=== PATIENT | male | born 1950 | race Caucasian/White ===

== ENCOUNTER 2017-12-27 06:58 | Outpatient (CLI) | payer MEDICARE ==
--- NOTE | 2017-12-27 09:22 | ULT ---
GALLBLADDER ULTRASOUND: Clinical indication: Right upper quadrant pain. FINDINGS: There is increased echogenicity with coarsening of the echotexture of the hepatic parenchyma. Portion s of the liver are not visualized for comment. There are a foci of increased echogenicity within the gallbladder lumen compatible with cholelithiasis/sludge. The gallbladder wall is borderline, approxim ating 3 mm. Common duct is normal at 3 mm in diameter. There is no ascites visualized. Imaged aspects of the right kidney do not reveal hydronephrosis. IMPRESSION: Findings consistent with cholelithiasis. There is an equivocal sized gallbladder wall at 3 mm. Recomm end clinical correlation. POS: LAUREN
== END 2017-12-27 06:59 | disposition home or self-care (01) ==
LOC: SCSULT 06:58
PROVIDERS: ATTEND Internal Medicine Gastroenterology
DX: K21.9 Gastro-esophageal reflux disease without esophagitis (principal); K22.70 Barrett's esophagus without dysplasia; R10.9 Unspecified abdominal pain; R50.9 Fever, unspecified; R94.5 Abnormal results of liver function studies; Z86.010 Personal history of colon polyps
CPT/HCPCS: 76705

== ENCOUNTER 2018-01-01 15:42 | Outpatient (CLI) | payer MEDICARE ==
[2018-01-01 16:43] LABS: #Basophils 0.1 thou/uL (0.0-0.2); #Eosinphils 0.2 thou/uL (0.0-0.7); #Lymphocytes 2.4 thou/uL (1.20-3.40); #Monocytes 0.9 thou/uL (0.11-0.59); #Neutrophils 3.7 thou/uL (1.40-6.50); %Basophils 1.2 % (0.0-1.0); %Eosinophils 2.7 % (0.0-10.0); %Lymphocytes 33.6 % (21.0-51.0); %Monocytes 11.7 % (0.0-10.0); %Neutrophils 50.9 % (42.0-75.0); Hemoglobin 14.3 g/dL (14.0-18.0); Mean Corpuscular HGB CONC 35.4 g/dL (32.0-36.0); Mean Corpuscular Hemoglobin 30.3 pg (27.0-31.0); Mean Corpuscular Volume 85.6 fL (78.0-98.0); Mean Platelet Volume 7.1 fL (7.4-10.4); Platelet Count 306 thou/uL (130-400); RBC Distribution Width 11.8 % (11.5-14.5); Red Blood Cell (RBC) Count 4.71 mill/uL (4.70-6.10); White Blood Cell (WBC) Count 7.2 thou/uL (4.8-10.8)
[2018-01-01 17:04] LABS: ALT (SGPT) 51 U/L (8-55); AST (SGOT) 22 U/L (5-34); Albumin 4.2 g/dL (3.4-4.8); Alkaline Phosphatase 140 U/L (40-150); Anion Gap 12 mmol/L (10-20); BUN (Urea Nitrogen) 12 mg/dL (8.4-25.7); Bilirubin, Direct 0.2 mg/dL (0.1-0.3); Bilirubin, Total 0.5 mg/dL (0.2-1.2); Calc. Creatinine Clearance 0 mL/min (70-130); Calcium 9.2 mg/dL (7.8-10.44); Carbon Dioxide 26 mmol/L (23-31); Chloride 105 mmol/L (98-107); Estimated GFR-MDRD 64; Globulin 3.2 g/dL (2.4-3.5); Glucose 96 mg/dL (80-115); Potassium 4.3 mmol/L (3.5-5.1); Protein, Total 7.4 g/dL (5.8-8.1); Sodium 139 mmol/L (136-145)
--- NOTE | 2018-01-02 12:26 | EKG ---
Test Reason : Blood Pressure : / mmHG Vent. Rate : 058 BPM Atrial Rate : 058 BPM P-R Int : 172 ms QRS Dur : 108 ms QT Int : 450 ms P-R-T Axes : 055 -33 000 degrees QTc Int : 441 ms Sinus bradycardia Left axis deviation Incomplete right bundle branch block Inferior infarct , age undetermined Abnormal ECG No previous ECGs available Confirmed by DR. Martita SWAN MD ([id number]) on 01/02/2018 12:25:44 PM Referred By: WILDER Confirmed By:DR. Martita SWAN MD
== END 2018-01-01 15:43 | disposition home or self-care (01) ==
LOC: LABBT 15:42
PROVIDERS: ATTEND Surgery
DX: Z01.818 Encounter for other preprocedural examination (principal); K80.20 Calculus of gallbladder without cholecystitis without obstruction
CPT/HCPCS: 80053; 80076; 85025; 93005; 93010

== ENCOUNTER 2018-01-04 06:02 | Day surgery (SDC) | payer MEDICARE ==
[2018-01-01 16:15] VITALS: BMI 28.6
[2018-01-04] MEDS ORDERED: Sodium Chloride 0.9% 100 ML ONE (06:15)
[2018-01-04] MEDS ORDERED: cefOXitin 2 GM VIAL ONE (06:15)
[2018-01-04] MEDS ORDERED: Iothalamate Meglumine 60% 50 ML VIAL FS ONE (06:50)
[2018-01-04] MEDS ORDERED: Bupivacaine/Epinephrine 0.25% 30 ML VIAL ONE (06:50)
[2018-01-04] MEDS ORDERED: Midazolam HCl 2 mg/2 ml Vial ONE ×2 (07:05→07:11)
[2018-01-04] MEDS ORDERED: Fentanyl 100 MCG/2 ML VIAL ONE (07:06)
[2018-01-04] MEDS ORDERED: HYDROmorphone 0.5 MG/0.5 ML SYRINGE ONE (07:06)
--- NOTE | 2018-01-04 09:08 | RAD ---
CHOLANGIOGRAM IN SURGERY: Date: 01/04/18 HISTORY: Laparoscopic cholecystectomy with cholangiogram. COMPARISON: None. FINDINGS: Two images from intraoperative cholangiogram performed. There is no significant intrahepatic or extra hepatic biliary dilatation. No significant leak. There is contrast extending through the common bile duct into the duodenum. IMPRESSION: No evidence for obstructive biliary disease. POS: DEMETRIA
[2018-01-04] MEDS ORDERED: Morphine 4 MG/ML VIAL ONE ×2 (09:18→09:35)
[2018-01-04] MEDS ORDERED: HYDROcodone/Acetaminophen 7.5/325 mg Tablet ONE (10:53)
--- NOTE | 2018-01-04 11:02 | OP ---
DATE OF PROCEDURE: 01/04/2018 PREOPERATIVE DIAGNOSIS: Symptomatic cholelithiasis. SURGEON: Lawrence Solano M.D. PROCEDURE PERFORMED: Laparoscopic cholecystectomy with intraoperative cholangiogram. INDICATIONS: A 67-year-old male who has been having epigastric pain, also had an episode of dark uri ne and elevated liver functions. FINDINGS: Multiple stones, small cystic duct. Cholangiogram showed no filling defects, free flow in to the duodenum. PROCEDURE IN DETAIL: After informed consent was obtained, the patient was taken to the operating [facility] and given general endotracheal anesthesia, placed in the supine position. The abdomen was prepped and draped in the usual fashion. Local anesthesia infiltrated subcutaneously and deep. A subumbilic al incision was performed. The subcu divided sharply. The fascia grasped. Two stay sutures of 0 Vi cryl placed to each side of midline. Midline incised. Digital palpation revealed no local adhesions . A blunt 10/12 mm trocar inserted. Pneumoperitoneum was created to a pressure of 15 mmHg. Zero-de gree laparoscope inserted under direct vision, three 5 mm ports placed subcostally. The gallbladder grasped, advanced superiorly. The peritoneum was lysed distally to dissect out the cystic duct, cyst ic artery and critical view. A clip was placed at the base of the gallbladder on the cystic duct, an incision made in the cystic duct and an Arrow cholangiocatheter inserted. Intraoperative cholangiog lin was performed utilizing fluoroscopy, showed good flow into the duodenum, no filling defects. The duct was triply ligated and divided. The artery triply ligated with Hemoclips and divided. The gal lbladder was removed from its fossa utilizing electrocautery, removed from the abdomen in an Endosac through the umbilical incision, sent to pathology for further analysis. Hemostasis was achieved with electrocautery. Wound irrigated. Irrigation fluid removed. The fascia closed with interrupted 0 V icryl suture. The skin closed with interrupted 4-0 Rapide. Dermabond applied. The patient tolerate d the procedure well and was transferred to recovery in good condition. Sponge and needle count veri fied correct x2.
== END 2018-01-04 11:36 | disposition home or self-care (01) ==
LOC: SDC 06:02
PROVIDERS: ATTEND Surgery
PROC: 0FT44ZZ Resection of Gallbladder, Percutaneous Endoscopic Approach (ICD-10-PCS; principal; 2018-01-04)
PROC: BF12YZZ Fluoroscopy of Gallbladder using Other Contrast (ICD-10-PCS; 2018-01-04)
DX: K81.1 Chronic cholecystitis (principal); Z87.891 Personal history of nicotine dependence; Z79.82 Long term (current) use of aspirin; Z79.899 Other long term (current) drug therapy
CPT/HCPCS: 47532; 88304; 96374; J0131; J0694; J1170; J2250; J2270; J3010; J7050; Q9961